=== PATIENT | female | born 2000 | race African-American/Black ===

== ENCOUNTER 2020-12-06 21:12 | Day surgery (SDC) | payer OTHER ==
[2020-12-06 21:15] VITALS: BMI 34.7
[2020-12-06] MEDS ORDERED: hydrALAZINE 20 MG/ML VIAL SLOW IVP PRN (21:45)
[2020-12-06] MEDS ORDERED: Sodium Chloride 0.9% 1,000 ML IV SCH (22:00)
[2020-12-06 22:36] LABS: Bilirubin Neg (Negative); Blood, Urine Negative (Negative); Clarity Slightly Cloudy (Clear); Glucose, Urine (Dipstick) Normal (Negative); Ketone, Urine Negative (Negative); Leukocyte Negative (Negative); Nitrite Negative (Negative); Protein, Urine (Dipstick) 15 mg/dl (Neg-Trace); Urobilinogen Normal mg/dL (Less than 2)
== END 2020-12-06 23:00 | disposition home or self-care (01) ==
LOC: CSHLD/OP 21:12
PROVIDERS: ATTEND Obstetrics & Gynecology
DX: O99.891 Other specified diseases and conditions complicating pregnancy (principal); R10.30 Lower abdominal pain, unspecified; Z3A.25 25 weeks gestation of pregnancy
CPT/HCPCS: 51701; 96360; 99283